=== PATIENT | male | born 1955 | race Caucasian/White ===

== ENCOUNTER 2016-08-12 06:39 | Day surgery (SDC) | payer BC ==
--- NOTE | ~2016-08-12 | EGD ---
EGD REPORT [facility] [address] [place] [place] [address] NAME: MODESTO TITUS : 53 STATUS : REG [facility] PAT#: [id number] AGE: 61 ADM/REG DATE : 08/12/16 MR#: [id number] REPORT SERV DATE: 08/12/16 DICTATED BY: ALBERT ZHENG DATE: 08/12/16 REPORT STATUS : Draft [facility] DATE: 08/12/16 Endoscopy Center Patient Name: Modesto Titus Date of : 1955 Attending MD: ALBERT ZHENG MD Procedure Date No Time: 08/12/2016 Procedure: Colonoscopy Indications: High risk colon cancer surveillance: Personal history of colonic polyps Referring MD: HOA BELTRÁN Medicines: morbid obesity, as per anesthesia Complications: No immediate complications. Procedure: Pre-Anesthesia Assessment: - ASA Grade Assessment: II - A patient with mild systemic disease. After I obtained informed consent, the scope was passed under direct vision. Throughout the procedure, the patient's blood pressure, pulse, and oxygen saturations were monitored continuously. The PCF [id number] was introduced through the anus and advanced to the cecum, identified by appendiceal orifice and ileocecal valve. The colonoscopy was performed without difficulty. The patient tolerated the procedure. The quality of the bowel preparation was adequate to identify polyps. Findings: The perianal and digital rectal examinations were normal. A sessile polyp was found in the transverse colon. The polyp was 4 mm in size. The polyp was removed with a jumbo cold forceps. Resection and retrieval were complete. A carpet-like, multi-lobulated, sessile polyp was found at the splenic flexure. The polyp was 40 mm in size. Biopsies were taken with a cold forceps for histology. Area was successfully injected with 5 mL Spot (carbon black) for tattooing. Internal hemorrhoids were found during endoscopy and were mild. Impression: - One 4 mm polyp in the transverse colon. Resected and retrieved. - One 40 mm polyp at the splenic flexure. Biopsied. Injected. - Internal hemorrhoids. Recommendation: - Await pathology results. - Refer to a surgeon. EGD REPORT [address] [address] NAME: MODESTO TITUS : 53 STATUS : REG [facility] [place] PAT#: [id number] AGE: 61 ADM/REG DATE : 08/12/16 MR#: [id number] REPORT SERV DATE: 08/12/16 DICTATED BY: ALBERT ZHENG. DATE: 08/12/16 REPORT STATUS : Draft TRANSCRIBED BY: [employer] DATE: 08/12/16 Procedure Code(s): --- Professional --- 78048, Colonoscopy, flexible, proximal to splenic flexure; with biopsy, single or multiple 06257, Colonoscopy, flexible, proximal to splenic flexure; with directed submucosal injection(s), any substance Diagnosis Code(s): --- Professional --- D12.3, Benign neoplasm of transverse colon K64.8, Other hemorrhoids Z86.010, Personal history of colonic polyps CPT copyright 2013 [employer]. All rights reserved. The codes documented in this report are preliminary and upon home planning consultant salesperson review may be revised to meet current compliance requirements. ALBERT ZHENG MD 08/12/2016 8:59 AM This report has been signed electronically. Number of Addenda: 0 Note Initiated On: 08/12/2016 7:08 AM Scope Withdrawal Time 0 hours 29 minutes 20 seconds [id number] [id number]
[~2016-08-12 06:39] MED LIST: 8 HOUR650 MG PO; ASAB PO; ATACAND HCT1 TA1 PO; C5 PO; HYZAAR1 TAB PO; MOBIC15 MG PO; OXYCOD PO; TECFIDERA240 MG PO
[2016-09-08] MEDS ORDERED: MOBIC15 MG PO (14:54)
[2016-09-15] MEDS ORDERED: PERCOCET 7.5/321 TAB PO (10:49)
== END 2016-08-12 23:59 | disposition home or self-care (01) ==
LOC: DMU 06:39
PROVIDERS: Internal Medicine Gastroenterology
PROC: 3E0H8GC Introduction of Other Therapeutic Substance into Lower GI, Via Natural or Artificial Opening Endoscopic (ICD-10-PCS; 2016-08-12)
PROC: 0DBL8ZX Excision of Transverse Colon, Via Natural or Artificial Opening Endoscopic, Diagnostic (ICD-10-PCS; principal; 2016-08-12 08:00)
DX: Z12.11 Encounter for screening for malignant neoplasm of colon (principal); D12.3 Benign neoplasm of transverse colon; K64.8 Other hemorrhoids; K21.9 Gastro-esophageal reflux disease without esophagitis; I10 Essential (primary) hypertension; G35 Multiple sclerosis; N20.0 Calculus of kidney; M19.90 Unspecified osteoarthritis, unspecified site; Z86.010 Personal history of colon polyps; Z85.46 Personal history of malignant neoplasm of prostate; Z96.642 Presence of left artificial hip joint; Z90.79 Acquired absence of other genital organ(s); Z79.82 Long term (current) use of aspirin; Z79.899 Other long term (current) drug therapy; Z98.890 Other specified postprocedural states
CPT/HCPCS: 88305